=== PATIENT | male | born 1970 | race Caucasian/White ===

== ENCOUNTER 2019-04-16 14:44 | Observation (INO) | payer OTHER ==
[2019-04-16 16:39] LABS: ABS Basophils 0.1 10^3/ul (0-0.2); ABS Eosinophils 0.1 10^3/ul (0-0.6); ABS Lymphocytes 3.3 10^3/ul (1.0-4.8); ABS Monocytes 1.5 10^3/ul (0-0.8); ABS Neutrophils 8.6 10^3/ul (1.5-7.7); Hematocrit 42 % (42-52); Lymphocyte % 24.1 %; Mean Corpuscular HGB Conc 33 g/dL (31-36); Mean Corpuscular Hemoglobin 34 pg (27-31); Mean Corpuscular Volume 103 fL (80-94); Mean Platelet Volume 8.7 fL (7.4-10.4); Nucleated Red Blood Cells % 0.1; Platelet Count 150 10^3/uL (150-450); Red Blood Count 4.11 10^6 /uL (4.18-5.48); Red Cell Distribution Width 17 % (10-15); White Blood Count 13.6 10^3/uL (3.5-10.8)
[2019-04-16 16:59] LABS: ALT 19 U/L (7-52); AST 26 U/L (13-39); Albumin 3.7 g/dL (3.2-5.2); Albumin/Globulin Ratio 1.2 (1-3); Alkaline Phosphatase 113 U/L (34-104); Anion Gap 7 mmol/L (2-11); BUN/Creatinine Ratio 21.6 (8-20); Blood Urea Nitrogen 25 mg/dL (6-24); CO2 Carbon Dioxide 29 mmol/L (22-32); Calcium 9.5 mg/dL (8.6-10.3); Chloride 101 mmol/L (101-111); EGFR African American 81.3 (>60); EGFR Non-African American 67.2 (>60); Globulin 3.1 g/dL (2-4); Glucose 132 mg/dL (70-100); Potassium 3.8 mmol/L (3.5-5.0); Sodium 137 mmol/L (135-145); Total Protein 6.8 g/dL (6.4-8.9)
[2019-04-16 17:03] LABS: Troponin I 0.03 ng/mL (<0.03)
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
[2019-04-16] MEDS ORDERED: Furosemide IV* 10 MG/ML VIAL (40 MG) IV SLOW PU ONE (18:12)
[2019-04-16] MEDS ORDERED: Acetaminophen TAB* 325 MG PO PRN (19:59)
[2019-04-16] MEDS ORDERED: Albuterol 2.5 MG/3 ML NEB.SOL* (0.083%) INH PRN (19:59)
[2019-04-16] MEDS ORDERED: Ondansetron INJ* 2 MG/ML VIAL IV PRN (19:59)
[2019-04-16 20:17] LABS: Activated Partial Thrombo Time 40.3 seconds (26.0-38.0); INR 1.76 (0.82-1.09)
[2019-04-16] MEDS ORDERED: traZODone TAB* 100 MG PO SCH (21:00)
[2019-04-16 21:19] LABS: Troponin I 0.03 ng/mL (<0.03)
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
[2019-04-16] MEDS ORDERED: Heparin VIAL(*) 5000 UNITS/ML VIAL (FIVE THOUSAND) SUBCUT SCH (22:00)
[2019-04-16 22:45] LABS: Influenza A Molecular Negative (Negative); Influenza B Molecular Negative (Negative)
[2019-04-16 23:21] LABS: Urine Appearance Clear; Urine Bilirubin Negative (Negative); Urine Blood 1+ (Negative); Urine Color Straw; Urine Glucose Negative (Negative); Urine Ketones Negative (Negative); Urine Nitrite Negative (Negative); Urine Protein Negative (Negative); Urine Specific Gravity 1.005 (1.010-1.030); Urine Urobilinogen Negative (Negative)
[2019-04-16 23:42] LABS: Urine Bacteria Absent (Absent); Urine Red Blood Cell Trace(0-2/hpf) (Absent); Urine White Blood Cell Absent (Absent)
[2019-04-17 03:39] LABS: Hematocrit 40 % (42-52); Hemoglobin 13.3 g/dL (14.0-18.0); Mean Corpuscular HGB Conc 33 g/dL (31-36); Mean Corpuscular Hemoglobin 34 pg (27-31); Mean Corpuscular Volume 101 fL (80-94); Mean Platelet Volume 8.4 fL (7.4-10.4); Platelet Count 149 10^3/uL (150-450); Red Blood Count 3.95 10^6 /uL (4.18-5.48); Red Cell Distribution Width 17 % (10-15); White Blood Count 13.5 10^3/uL (3.5-10.8)
[2019-04-17 03:44] LABS: INR 2.02 (0.82-1.09)
[2019-04-17 04:08] LABS: Troponin I 0.04 ng/mL (<0.03)
[2019-04-17 04:33] LABS: Albumin 3.6 g/dL (3.2-5.2); Albumin/Globulin Ratio 1.3 (1-3); BUN/Creatinine Ratio 23.2 (8-20); Calcium 9.5 mg/dL (8.6-10.3); EGFR African American 84.7 (>60); Globulin 2.8 g/dL (2-4); HDL Cholesterol 21.8 mg/dL; Indirect Bilirubin 1.2 mg/dL (0.3-1.0); Potassium 4.5 mmol/L (3.5-5.0); Total Bilirubin 1.8 mg/dL (0.2-1.0); Total Protein 6.4 g/dL (6.4-8.9)
--- NOTE | 2019-04-17 04:40 | PN ---
Hospitalist Progress Note Date of Service: 04/17/19 Not IUNR 2.02 suepct elvated due to liver congestion from possible right sided CHF, will hold heparin sub-q scds ordered
[2019-04-17 04:53] LABS: ABS Basophils 0.2 10^3/ul (0-0.2); ABS Eosinophils 0.3 10^3/ul (0-0.6); ABS Lymphocytes 3.4 10^3/ul (1.0-4.8); ABS Monocytes 1.6 10^3/ul (0-0.8); Lymphocyte % 25.5 %; Nucleated Red Blood Cells % 0.2
[2019-04-17 06:24] LABS: Troponin I 0.04 ng/mL (<0.03)
[2019-04-17] MEDS ORDERED: Furosemide IV* 10 MG/ML VIAL (40 MG) IV SLOW PU SCH (08:00)
[2019-04-17] MEDS ORDERED: Aspirin EC TAB* 81 MG TAB.EC PO SCH (09:00)
[2019-04-17] MEDS ORDERED: Clopidogrel TAB* 75 MG PO SCH (09:00)
[2019-04-17] MEDS ORDERED: Lisinopril TAB* 10 MG PO SCH (09:00)
[2019-04-17] MEDS ORDERED: Pantoprazole TAB * 40 MG TAB PO SCH (09:00)
[2019-04-17] MEDS ORDERED: Bumetanide IV* 0.25 MG/ML 4 ML VIAL SLOW PUSH SCH ×3 (11:12→21:00)
[2019-04-17] MEDS ORDERED: Spironolactone TAB* 25 MG PO SCH (11:13)
[2019-04-17] MEDS ORDERED: Perflutren Lipid Microsphere* 3 ML VIAL ONE (11:27)
--- NOTE | 2019-04-17 12:51 | CONS ---
CONSULTATION REPORT: DATE OF CONSULT: 04/17/19 ATTENDING PHYSICIAN: Dr. Arvind Fonseca, Cardiology.* (DICTATED BY TOBY CHAMBERS NP) PRIMARY ABSTRACT CLERK: Historically, Dr. Carlo Noel. PRIMARY PHYSICIAN: Romie García, [facility] CHIEF COMPLAINT: Weight gain, shortness of breath, orthopnea, abdominal distention. HISTORY OF PRESENT ILLNESS: This is a 48-year-old male patient, historically followed by Dr. Carlo Noel due to a history of coronary artery disease with prior myocardial infarction in 2011 with recurrent DE in 2015, ischemic cardiomyopathy, obesity, hypertension, hyperlipidemia and ongoing tobacco abuse with medical followup noncompliance. The patient states he has not been followed by Cardiology since [address] citing [address] Noel and himself. He states he has been seeing Romie García periodically over the last 6 months due to complaints of increased lower extremity edema and weight gain. He states that Romie García has been temporarily placing him on p.o. Lasix and diuresing him as needed for hypervolemia; however, over the past 6 to 8 weeks while being off Lasix, he has developed a 35 pound weight gain with associated abdominal distention, orthopnea , shortness of breath and lower extremity edema with scrotal edema. He states that he opted for evaluation due to severity of symptoms. He denies chest pain. Denies anginal equivalent, which historically was diaphoresis and chest pressure. While being evaluated in the emergency department, the patient had minimal troponin elevation at 0.03, thus was admitted to [address] [place] [address]. BNP was elevated at 620. Liver function tests were suggestive of hepatic congestion. We have been asked to see the patient in consultation. ECG from 04/16/19 at 0453 was reviewed. The patient was in a junctional rhythm, rate 63. Chest x- ray 04/16/19 was suggestive of cardiomegaly with pulmonary vascular congestion. Upon entering room, he was anxious, stating he was going to leave against medical advice because he has not slept and was "sweaty." The family was at bedside. He denies dizziness, syncope, palpitations, sensation of heart racing or chest pain. Last echocardiogram according to our medical records was in November 2014. At that time per report, LVEF 20% to 25% with severe global hypokinesis. The basal anterior, basal anterolateral, basal inferolateral, basal inferior, mid anterior, mid anterolateral, mid inferolateral, mid inferior and apical lateral wall segments were hypokinetic. The basal anteroseptal, basal inferoseptal, mid anteroseptal, mid inferoseptal, and apical inferior wall segments were akinetic. Moderate left atrial dilatation. Mild right ventricular systolic dysfunction. Mild tricuspid insufficiency. Trace to mild mitral regurgitation. Last ischemic evaluation via left heart catheterization on 11/17/14; 1. Per report, left main patent. 2. LAD supplied a thin diffusely diseased small caliber first diagonal branch. Second diagonal branch was somewhat small caliber vessel. There was no significant disease. The LAD had a stent noted in the mid portion which had mild to moderate in-stent restenosis. The severity of narrowing was approximately 25% to 30%. The distal LAD tapered as it approached the apical region and on to the distal inferior wall. There was mild disease seen. 3. Left circumflex nondominant vessel supplying a moderate to large size trifurcation marginal branch. There was a 50% to 55% narrowing noted in the proximal portion of this artery. There was an ostial 30% to 35% narrowing seen. There is collateral blood flow seen subtly to the RCA through left coronary system most likely septal perforators in the LAD. 4. Right coronary artery totally occluded proximally. On reconstitution, there was diffuse disease seen within the proximal to mid portion of the vessel with a long segment at 75% to 80% stenosis with a dissected area in its mid portion prior to bifurcation into the large acute marginal branch which supplied the distal inferior wall and a continuation of the right coronary artery supplying the more proximal inferior wall to the PDA. At that time, the patient underwent successful reconstitution of totally occluded proximal RCA with PTCA 2.5 x 32 mm drug-eluting stent. PAST MEDICAL HISTORY: 1. Ischemic cardiomyopathy. 2. Systolic heart failure. 3. Ongoing tobacco abuse. 4. Hyperlipidemia. 5. Hypertension. 6. Prior DE in 2011 with subsequent DE in 2014. 7. Coronary artery disease. 8. Gastric reflux. PAST SURGICAL HISTORY: Includes: 1. Prior LAD stenting in 2011 with subsequent drug-eluting stent to right coronary artery in 2014. 2. Orthopedic surgery involving his right forearm, right hip and right femur. HOME MEDICATIONS: Listed includes: 1. Atorvastatin unknown dose. 2. Lisinopril unknown dose. 3. Clopidogrel 75 mg a day. 4. Omeprazole 40 mg a day. 5. Aspirin 81 mg a day. ALLERGIES: Listed includes BETA-BLOCKERS, which apparently caused a profound bradycardia per the patient's . FAMILY HISTORY: Noncontributory. SOCIAL HISTORY: The patient is disabled, , lives at home with his . Smokes half a pack per day for the last 35 years. Denies alcohol use. Reports former marijuana use, but states he has not used marijuana products in several years. 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 REVIEW OF SYSTEMS: All systems have been reviewed and otherwise negative except what was above mentioned in the HPI. PHYSICAL EXAM: The patient is sitting on edge of bed, anxious, aggravated upon entering room; however, he is alert and oriented and cooperative. Family is at bedside. HEENT: Head is atraumatic, normocephalic. Oral mucosa is moist. Tongue is midline. Neck: Supple. Trachea midline. Unable to assess JVD due to neck girth. Cardiac: Diminished S1, S2. Regular rate and rhythm. No overt murmur, rub, or gallop noted. Lungs: Auscultated posteriorly, diminished throughout. Respirations nonlabored. Abdomen is obese, nontender. Normoactive bowel sounds x4. Unable to palpate for hepatomegaly due to protuberant abdomen. Extremities: 1+ pitting bilateral pretibial edema noted. The patient reports scrotal edema. Skin: Intact. No evidence of jaundice, rashes, or ecchymosis appreciated. DIAGNOSTIC STUDIES/LAB DATA: Blood work obtained on 04/17/19 reviewed, sodium 135, potassium 4.5, chloride 100, carbon dioxide 26, BUN 26, creatinine 1.12. Total bilirubin 1.8, AST and ALT are normal, alk phos 110. Troponin #1 is 0.03. Troponin #2 is 0.04. Troponin #3 is 0.04. BNP is 620. LDL 40. Influenza rapid A and B are negative. INR is 2.02. White count 13.5, hemoglobin 13.3, hematocrit 40, platelets 149. ECG as mentioned above. ASSESSMENT AND PLAN: 1. Decompensated systolic dysfunction. LVEF historically 20% to 25% with a prior history of ischemic cardiomyopathy; NYHA functional class 3, stage C. The patient has been temporarily on p.o. Lasix intermittently for the past 6 months with reported 35 pound weight gain, positive orthopnea, shortness of breath, pretibial edema and scrotal edema. At this current time, would recommend discontinuing IV Lasix and transitioning to IV Bumex, which will likely be better absorbed. He has a history of reported profound bradycardia with beta-blockers, thus he is not on beta-paco therapy at this time. Resting heart rate is 60 to 70. I would recommend continuing lisinopril therapy. We will add Aldactone 12.5 mg a day, up titrate depending upon blood pressure and electrolyte response. Await echocardiogram in the past. According to the , the patient declined AICD implantation. The patient is adamant about leaving against medical advice today, stating he has not slept and wishes to sleep in his own home. I reviewed with the patient that his abnormal liver function test could be suggestive of hepatic congestion and/or liver disease. In addition, he is at risk for dying suddenly from sudden cardiac . The patient states that he is willing to wait to have echocardiogram completed; however, again he is adamant about leaving against medical advice. The patient states that he will follow up outpatient with Dr. Fonseca. Follow up appointment has been arranged. We will make further recommendations post echocardiogram and notify primary team of the patient's agitation and request to leave against medical advice. 2. Troponin elevation; the patient denies angina equivalent, which historically was diaphoresis and chest pain. The patient is noted to be in a junctional rhythm on ECG, this could be related to above #1; however, he does have known mild LAD in- stent restenosis based on 2015 left heart catheterization in addition to moderate left circumflex disease. We would recommend continuing aspirin, clopidogrel and statin therapy, not on beta blockade therapy due to reported sensitivity/reaction. We will await echocardiogram to rule out regional wall motion abnormality. 3. Abnormal liver function; the patient has INR of 2 with elevated alk phos and bilirubin, although this could be related to hepatic congestion, which suggest ruling out liver disease. Given morbid obesity, this could also be due to nonalcoholic steatohepatitis. 4. History of hyperlipidemia, on atorvastatin therapy. Goal LDL is less than 70. 5. Disposition. Pending course. We will await echocardiogram, transition IV Lasix to Bumex therapy and make recommendations following. We will update primary team about the patient's request to leave against medical advice. TOBY CHAMBERS, DANK [id number]/[facility] #: [id number] [facility], MANHATTANLive
[2019-04-17 13:03] VITALS: BP 136/72
--- NOTE | 2019-04-17 16:34 | ECHO ---
*[facility]* [place] [address] Fax #: [phone] Transthoracic Echocardiogram Patient: Kenney Estevez : 1970 Study Date: 04/17/2019 Age: 48 Gender: M HR: 68 bpm Height: 74 in /188 cm BSA: 2.75 m^2 Weight: 348.3 lb /158.3 kg BMI: 44.8 kg/m^2 *Slider Assembler: * Olena Bolden RDCS RN *Referring Physician: * Vernon Mcguire *Reading Physician: * Arvind Fonseca MD Indications: Congestive Heart Failure. History: Coronary artery disease. SD. PCI. Cardiomyopathy. Risk factors: Current tobacco use. Hypertension. Obese. Conclusions Summary: - Left ventricle: The cavity size is moderately dilated. Posterior wall thickness is mildly increased. Systolic function is severely reduced globally. The inferior wall appears to move best. The estimated ejection fraction is 15-20%. - Right ventricle: Systolic function is moderately reduced. - Left atrium: The atrium is moderately to severely dilated. - Mitral valve: There is trace regurgitation. - Aortic valve: There is no evidence of stenosis. - Tricuspid valve: There is mild-moderate regurgitation. - Pulmonary arteries: Systolic pressure is within the normal range, estimated to be 21 mm Hg. Pulmonary artery pressure may be underestimated - Compared to study of 11/17/14, the left ventricle and right ventricle functions are worse. Study data: Transthoracic echocardiogram. Procedure: Transthoracic echocardiography was performed. Image quality was suboptimal. The study was technically limited due to body habitus and smoking history. Intravenous Definity 4 ml was administered to enhance imaging. Complete 2D, spectral Doppler, and color flow Doppler. Location: Bedside. Patient status: Inpatient. Patient room number: 442-01. Rhythm: Normal sinus rhythm with PVCs. Findings Left ventricle: The cavity size is moderately dilated. Posterior wall thickness is mildly increased. Systolic function is severely reduced globally. The inferior wall appears to move best. The estimated ejection fraction is 15-20%. Doppler parameters are consistent with restrictive physiology, indicative of decreased left ventricular diastolic compliance and/or increased left atrial pressure. Right ventricle: The cavity size is moderately dilated. Systolic function is moderately reduced. Left atrium: The atrium is moderately to severely dilated. Right atrium: The atrium is moderately to severely dilated. Mitral valve: The leaflets are mildly thickened. There is no evidence of stenosis. There is trace regurgitation. Aortic valve: The valve is trileaflet. The leaflets are mildly thickened. There is no evidence of stenosis. There is no significant regurgitation. Tricuspid valve: Not well visualized. There is mild-moderate regurgitation. Pulmonic valve: The valve is structurally normal. There is no evidence of stenosis. There is mild regurgitation. Aorta: Aortic root: The aortic root is not dilated. Ascending aorta: The ascending aorta is not dilated. Aortic arch: The aortic arch is not visualized. Pericardium: There is no significant pericardial effusion. Pulmonary arteries: The main pulmonary artery is normal-sized. Systolic pressure is within the normal range, estimated to be 21 mm Hg. Pulmonary artery pressure may be underestimated Systemic veins: Inferior vena cava: Not well visualized. Measurements Left ventricle Value Ref Aortic valve Value Ref URBAN, LAX (H) 6.8 cm 4.2 - 5.8 Charito diam, ED 2.1 cm ---- ESD, LAX (H) 6.4 cm 2.5 - 4.0 Peak v, S 1.5 m/sec ---- FS, LAX (L) 6 % 25 - 43 VTI, S 25.1 cm ---- PW, ED (H) 1.1 cm 0.6 - 1.0 Mean grad, S 6.0 mm Hg ---- IVS/PW, ED 0.9 Peak grad, S 9.0 mm Hg ---- E', lat charito, TDI (L) 8.9 cm/sec >=10.0 LVOT/AV, VTI ratio 0.8 --- - E/e', lat charito, 10 TDI Mitral valve Value Ref E', med charito, TDI (L) 5.5 cm/sec >=7.0 Peak E 0.92 m/sec --- - E/e', med charito, 17 Peak A 0.33 m/sec ---- TDI Decel time 130 ms ---- E', avg, TDI 7.2 cm/sec Peak grad, D 3.4 mm Hg ---- E/e', avg, TDI 13 <=14 Peak E/A ratio 2.7 --- - LVOT Value Ref Pulmonic valve Value Ref Peak viji, S 1.22 m/sec Peak v, S 1.01 m/sec ---- VTI, S 20.1 cm Peak grad, S 4.0 mm Hg ---- Peak grad, S 6 mm Hg Mean grad, S 3 mm Hg Tricuspid valve Value Ref Peak RV-RA grad, S 13 mm Hg ---- Ventricular septum Value Ref Max TR viji 1.8 m/sec ---- IVS, ED 1.0 cm 0.6 - 1.0 Aortic root Value Ref Right ventricle Value Ref Root diam 3.5 cm <4.7 URBAN, LAX 4.8 cm URBAN minor ax, (H) 4.8 cm 1.9 - 3.5 Ascending aorta Value Ref A4C mid AAo AP diam, S 3.1 cm ---- Left atrium Value Ref Aortic arch Value Ref AP dim, ES (H) 5.00 cm 3.00 - Arch diam 3.1 cm ---- 4.00 ML dim, A4C 6.1 cm SI dim, A4C 7.4 cm Vol/bsa, ES, 1-p (H) 59 ml/m^2 12 - 37 A4C Vol/bsa, ES, A/L (H) 48 ml/m^2 16 - 34 Right atrium Value Ref ML dim, ES, A4C (H) 5.2 cm 2.6 - 4.4 SI dim, ES, A4C (H) 7.0 cm 3.4 - 5.3 Legend: (L) and (H) yovanny values outside specified reference range. Prepared and electronically signed by Arvind Fonseca MD 04/17/2019 16:34
[2019-04-17] MEDS ORDERED: Atorvastatin* 80 MG TAB PO SCH (18:00)
[2019-04-18] MEDS ORDERED: Spironolactone TAB* 25 MG PO SCH (09:00)
== END 2019-04-17 15:00 | disposition home or self-care (01) ==
LOC: ED 14:44 → INTOOBSV 19:52 → MEDTELE 19:52
PROVIDERS: ADMIT Nurse Practitioner Family; ATTEND Nurse Practitioner Family
DX: R19.00 Intra-abdominal and pelvic swelling, mass and lump, unspecified site (principal); R60.9 Edema, unspecified; R06.01 Orthopnea; R63.5 Abnormal weight gain; I11.0 Hypertensive heart disease with heart failure; I50.9 Heart failure, unspecified; K21.9 Gastro-esophageal reflux disease without esophagitis; I25.10 Atherosclerotic heart disease of native coronary artery without angina pectoris; I25.2 Old myocardial infarction; I25.5 Ischemic cardiomyopathy; Z95.5 Presence of coronary angioplasty implant and graft; R06.02 Shortness of breath; E11.9 Type 2 diabetes mellitus without complications; R06.00 Dyspnea, unspecified; R94.31 Abnormal electrocardiogram [ECG] [EKG]; F17.210 Nicotine dependence, cigarettes, uncomplicated; E78.5 Hyperlipidemia, unspecified; J44.9 Chronic obstructive pulmonary disease, unspecified; Z79.82 Long term (current) use of aspirin; Z79.811 Long term (current) use of aromatase inhibitors; Z79.01 Long term (current) use of anticoagulants; Z88.8 Allergy status to other drugs, medicaments and biological substances
CPT/HCPCS: 36415; 71045; 80048; 80053; 80061; 80076; 81003; 81015; 83036; 83605; 83880; 84484; 85025; 85610; 85730; 87040; 93005; 93306; 96372; 96374; 96376; 99285; A9270-GY; C8929; G0378; J1644; J1940

== ENCOUNTER 2019-11-14 15:00 | Inpatient (IN) ==
[2019-11-14] MEDS ORDERED: Magnesium Sulfate 2 gm BAG 2 GM/50 ML BAG IVPB ONE (15:03)
[2019-11-14] MEDS ORDERED: Amiodarone 150 mg IVPREMIX 150 MG/100 ML BAG IV ONE (15:05)
[2019-11-14] MEDS ORDERED: fentaNYL 100 mcg/2 ml 50 MCG/ML VIAL IV SLOW PU ONE (15:21)
[2019-11-14 15:23] LABS: ABS Basophils 0.1 10^3/ul (0-0.2); ABS Eosinophils 0.1 10^3/ul (0-0.6); ABS Lymphocytes 2.1 10^3/ul (1.0-4.8); ABS Monocytes 1.1 10^3/ul (0-0.8); Eosinophil % 1.4 %; Hematocrit 46 % (42-52); Hemoglobin 15.8 g/dL (14.0-18.0); Mean Corpuscular HGB Conc 35 g/dL (31-36); Mean Corpuscular Hemoglobin 35 pg (27-31); Mean Corpuscular Volume 103 fL (80-94); Mean Platelet Volume 8.2 fL (7.4-10.4); Nucleated Red Blood Cells % 0.2; Platelet Count 145 10^3/uL (150-450); Red Blood Count 4.48 10^6 /uL (4.18-5.48); Red Cell Distribution Width 18 % (10-15); White Blood Count 8.4 10^3/uL (3.5-10.8)
[2019-11-14] MEDS ORDERED: fentaNYL 100 mcg/2 ml 50 MCG/ML VIAL ONE (15:23)
[2019-11-14] MEDS ORDERED: Midazolam 2 mg/2 ml VIAL 1 mg/ml 2 ml VIAL (2 mg) IV SLOW PU ONE (15:25)
[2019-11-14] MEDS ORDERED: Midazolam 5 mg/ml concentrated 5 mg/ml 1 ml VIAL ONE (15:26)
[2019-11-14] MEDS ORDERED: Amiodarone 360 MG IVPREMIX 360 MG/200 ML BAG IV ONE (15:33)
[2019-11-14 15:46] LABS: Albumin 4.2 g/dL (3.2-5.2); Albumin/Globulin Ratio 1.2 (1-3); BUN/Creatinine Ratio 18.3 (8-20); Calcium 9.8 mg/dL (8.6-10.3); EGFR African American 104.5 (>60); EGFR Non-African American 86.4 (>60); Globulin 3.6 g/dL (2-4); Potassium 4.1 mmol/L (3.5-5.0); Total Bilirubin 1.6 mg/dL (0.2-1.0); Total Protein 7.8 g/dL (6.4-8.9)
[2019-11-14 15:48] LABS: Troponin I 0.01 ng/mL (<0.03)
[2019-11-14] MEDS ORDERED: Amiodarone 400 mg TAB PO ONE (15:49)
[2019-11-14 19:51] LABS: Magnesium 1.8 mg/dL (1.9-2.7)
[2019-11-14] MEDS: Mometasone/Formoter 200/5 MDI INH SCH (20:31)
[2019-11-14 21:42] LABS: Anion Gap 8 mmol/L (2-11); BUN/Creatinine Ratio 19.6 (8-20); Blood Urea Nitrogen 18 mg/dL (6-24); CO2 Carbon Dioxide 21 mmol/L (22-32); Calcium 9.7 mg/dL (8.6-10.3); Chloride 104 mmol/L (101-111); EGFR African American 105.8 (>60); EGFR Non-African American 87.4 (>60); Glucose 109 mg/dL (70-100); Magnesium 2.1 mg/dL (1.9-2.7); Potassium 4.5 mmol/L (3.5-5.0); Sodium 133 mmol/L (135-145)
[2019-11-15 01:32] LABS: Troponin I 11.13 ng/mL (<0.03)
[2019-11-15 05:42] LABS: Hematocrit 44 % (42-52); Hemoglobin 15.3 g/dL (14.0-18.0); Mean Corpuscular HGB Conc 35 g/dL (31-36); Mean Corpuscular Hemoglobin 36 pg (27-31); Mean Corpuscular Volume 103 fL (80-94); Mean Platelet Volume 8.6 fL (7.4-10.4); Platelet Count 127 10^3/uL (150-450); Red Blood Count 4.29 10^6 /uL (4.18-5.48); Red Cell Distribution Width 18 % (10-15); White Blood Count 10.7 10^3/uL (3.5-10.8)
[2019-11-15] MEDS ORDERED: NS 0.9% 1000 ml BAG 1,000 ML IV SCH ×2 (06:00→10:30)
[2019-11-15 06:04] LABS: Anion Gap 9 mmol/L (2-11); BUN/Creatinine Ratio 18.9 (8-20); Blood Urea Nitrogen 18 mg/dL (6-24); CO2 Carbon Dioxide 21 mmol/L (22-32); Calcium 9.6 mg/dL (8.6-10.3); Chloride 103 mmol/L (101-111); EGFR Non-African American 84.3 (>60); Glucose 104 mg/dL (70-100); Magnesium 1.9 mg/dL (1.9-2.7); Potassium 4.6 mmol/L (3.5-5.0); Sodium 133 mmol/L (135-145)
[2019-11-15] MEDS ORDERED: Magnesium Sulfate IV 1GM/100ML 1 GM/100 ML BAG IV ONE (06:09)
[2019-11-15 06:12] LABS: Troponin I 9.82 ng/mL (<0.03)
[2019-11-15] MEDS ORDERED: diPHENhydraMINE IV 50 MG/ML 1 ml VIAL (BENADRYL) ONE (08:14)
[2019-11-15] MEDS ORDERED: VERAPAMIL 2.5 MG/ML 2 ML VIAL ** 5 mg/2 ml ONE ×2 (08:14→09:15)
[2019-11-15] MEDS ORDERED: Midazolam 5 mg/5 ml VIAL 1 mg/ml 5 ml VIAL (5 mg) ONE (08:14)
[2019-11-15] MEDS ORDERED: HYDROmorphone 1 MG/1 ML SYRINGE ONE (08:14)
[2019-11-15] MEDS ORDERED: Heparin 1,000 UNIT/ML 10 ml (10,000 UNITS) CATHLAB/DIALYSIS ONE ×2 (08:14→09:17)
[2019-11-15] MEDS ORDERED: nitroGLYCERIN DRIP 0 MCG/0 ML BTL ONE (08:15)
[2019-11-15] MEDS ORDERED: Lidocaine 1% VIAL 10 MG/ML VIAL ONE (08:15)
[2019-11-15] MEDS ORDERED: Heparin 2 UNITS/ML 1000 mls 2,000 ML IV ONE (08:15)
[2019-11-15] MEDS ORDERED: Iohexol 350 (CONTRAST) 200 ML MDV IV ONE ×2 (08:15→09:04)
[2019-11-15] MEDS ORDERED: Amiodarone 360 MG IVPREMIX 0 MG/0 ML BAG IV ONE (08:54)
[2019-11-15] MEDS ORDERED: Amiodarone IV 150 mg/3 ml VIAL ONE (08:54)
[2019-11-15] MEDS ORDERED: Magnesium Sulfate IV 0.5 GM/ML 2 ml VIAL (1 gm) ONE (08:55)
[2019-11-15] MEDS ORDERED: CMCS:Epleronone 25 mg TAB (NF) PO SCH (09:00)
[2019-11-15] MEDS ORDERED: Aspirin EC 81 mg TAB.EC (enteric coated) PO SCH (09:00)
[2019-11-15] MEDS ORDERED: Amiodarone 400 mg TAB PO SCH (09:00)
[2019-11-15 09:31] LABS: ABS Basophils 0.1 10^3/ul (0-0.2); ABS Lymphocytes 1.7 10^3/ul (1.0-4.8); ABS Monocytes 1.2 10^3/ul (0-0.8); ABS Neutrophils 7.7 10^3/ul (1.5-7.7); Eosinophil % 0.4 %; Lymphocyte % 16.2 %
[2019-11-15] MEDS: Mometasone/Formoter 200/5 MDI INH SCH (11:00)
[2019-11-15 12:12] VITALS: BP 107/75
== END 2019-11-15 13:00 | disposition short-term general hospital (02) | DRG 192 ==
LOC: ED 15:00 → ICU 17:13
PROVIDERS: ADMIT Internal Medicine; ATTEND Internal Medicine

== ENCOUNTER 2019-12-18 23:37 | Observation (INO) ==
[2019-12-19 00:51] LABS: Hematocrit 41 % (42-52); Hemoglobin 13.8 g/dL (14.0-18.0); Mean Corpuscular HGB Conc 34 g/dL (31-36); Mean Corpuscular Hemoglobin 35 pg (27-31); Mean Corpuscular Volume 103 fL (80-94); Mean Platelet Volume 7.9 fL (7.4-10.4); Platelet Count 157 10^3/uL (150-450); Red Cell Distribution Width 19 % (10-15); White Blood Count 9.1 10^3/uL (3.5-10.8)
[2019-12-19 01:05] LABS: ABS Eosinophils 0.1 10^3/ul (0-0.6); ABS Lymphocytes 1.9 10^3/ul (1.0-4.8); ABS Monocytes 1.7 10^3/ul (0-0.8); ABS Neutrophils 5.4 10^3/ul (1.5-7.7); Eosinophil % 1.2 %; Lymphocyte % 21.3 %
[2019-12-19 01:09] LABS: ALT 24 U/L (7-52); AST 25 U/L (13-39); Albumin 3.7 g/dL (3.2-5.2); Albumin/Globulin Ratio 1.2 (1-3); Alkaline Phosphatase 135 U/L (34-104); Anion Gap 9 mmol/L (2-11); Blood Urea Nitrogen 25 mg/dL (6-24); C Reactive Protein 3.01 mg/L (<8.01); CO2 Carbon Dioxide 27 mmol/L (22-32); Chloride 101 mmol/L (101-111); EGFR African American 91.8 (>60); EGFR Non-African American 75.9 (>60); Globulin 3.1 g/dL (2-4); Glucose 103 mg/dL (70-100); INR 2.05 (0.82-1.09); Potassium 3.7 mmol/L (3.5-5.0); Sodium 137 mmol/L (135-145); Total Protein 6.8 g/dL (6.4-8.9)
[2019-12-19 01:17] LABS: Troponin I 0.04 ng/mL (<0.03)
[2019-12-19] MEDS ORDERED: Furosemide 20 mg/2 ml IV VIAL IV ONE (01:25)
[2019-12-19 07:29] LABS: ABS Basophils 0.1 10^3/ul (0-0.2); ABS Eosinophils 0.1 10^3/ul (0-0.6); ABS Lymphocytes 1.7 10^3/ul (1.0-4.8); ABS Monocytes 1.4 10^3/ul (0-0.8); ABS Neutrophils 5.2 10^3/ul (1.5-7.7); Hematocrit 40 % (42-52); Hemoglobin 13.8 g/dL (14.0-18.0); Mean Corpuscular HGB Conc 34 g/dL (31-36); Mean Corpuscular Hemoglobin 35 pg (27-31); Mean Corpuscular Volume 103 fL (80-94); Platelet Count 148 10^3/uL (150-450); Red Blood Count 3.91 10^6 /uL (4.18-5.48); Red Cell Distribution Width 18 % (10-15); White Blood Count 8.4 10^3/uL (3.5-10.8)
[2019-12-19 07:55] LABS: Anion Gap 9 mmol/L (2-11); BUN/Creatinine Ratio 23.8 (8-20); Blood Urea Nitrogen 24 mg/dL (6-24); CO2 Carbon Dioxide 27 mmol/L (22-32); Calcium 9.1 mg/dL (8.6-10.3); Chloride 101 mmol/L (101-111); EGFR Non-African American 78.5 (>60); Glucose 122 mg/dL (70-100); Potassium 3.6 mmol/L (3.5-5.0); Sodium 137 mmol/L (135-145)
[2019-12-19 08:00] LABS: Troponin I 0.03 ng/mL (<0.03)
[2019-12-19] MEDS ORDERED: Furosemide 40 mg/4 ml IV VIAL IV SCH ×3 (08:00→09:00)
[2019-12-19] MEDS: Furosemide 40 mg/4 ml IV VIAL IV SCH ×2 (08:22→13:57)
[2019-12-19] MEDS ORDERED: CMCS:Epleronone 25 mg TAB (NF) PO SCH (09:00)
[2019-12-19 10:11] LABS: Indirect Bilirubin 1.2 mg/dL (0.3-1.0)
[2019-12-19 11:02] LABS: GGTP 56 U/L (9-64.0)
[2019-12-19] MEDS ORDERED: Perflutren Lipid Microsphere 3 ML VIAL ONE (15:37)
[2019-12-19 22:30] VITALS: BP 113/64
== END 2019-12-19 21:20 | disposition left against medical advice (07) ==
LOC: ED 23:37 → MEDTELE 23:37
PROVIDERS: ADMIT Hospitalist; ATTEND Hospitalist

== ENCOUNTER 2023-10-04 20:00 | Inpatient (IN) ==
[2023-10-04] MEDS: Lactated Ringers 1000 ml BAG 1,000 ML IV ONE (21:09)
[2023-10-04 21:26] LABS: Activated Partial Thrombo Time 47.5 seconds (26.0-38.0); INR 3.97 (0.83-1.13)
[2023-10-04 21:27] LABS: Hematocrit 39.8 % (38-53); Hemoglobin 13.4 g/dL (13.2-16.3); Mean Corpuscular Hemoglobin 36.9 pg (27-33); Mean Corpuscular Hgb Conc 33.8 g/dL (31-36); Mean Corpuscular Volume 109.2 fL (80-97); Red Blood Count 3.64 10^6/uL (4.06-5.63); Red Cell Distribution Width 21.8 % (12-17); White Blood Count 9.8 10^3/uL (3.6-10.2)
[2023-10-04 21:50] LABS: ABS Lymphocytes 0.4 10^3/uL (1.0-4.8); ABS Monocytes 0.5 10^3/uL (0.0-1.1); ABS Neutrophils 8.9 10^3/uL (1.5-7.6); ABS Nucleated RBC 0.01 10^3/ul; Lymphocyte % 3.7 %; Mean Platelet Volume 9.5 fL (7.5-11.2); Nucleated Red Blood Cells % 0.1 %/100WBC (0.0-0.8); Platelet Count 86 10^3/uL (150-450)
[2023-10-04 21:54] LABS: Albumin 3.4 g/dL (3.2-5.2); Albumin/Globulin Ratio 1.1 (1-3); C Reactive Protein 71.09 mg/L (<8.01); Calcium 8.5 mg/dL (8.6-10.3); Creatinine, Serum 4.48 mg/dL (0.67-1.17); Magnesium 1.8 mg/dL (1.9-2.7); Potassium 3.6 mmol/L (3.5-5.0); Total Bilirubin 3.4 mg/dL (0.2-1.0); Total Protein 6.4 g/dL (6.4-8.9); eGFR CKD-EPI 14.9 (>60)
[2023-10-04] MEDS: Calcium Gluconate 1 GM/10 ML VIAL (in Pyxis) IV PUSH ONE (22:02)
[2023-10-04] MEDS: Lactulose 30 ml UDC PO ONE (22:03)
[2023-10-04] MEDS: cefTRIAXone 1 gm/50 mL D5W 1 GM/50 ML BAG IV ONE (23:00)
[2023-10-04 23:55] LABS: High Sensitivity Troponin 1 Hr 71 pg/mL (<20)
[2023-10-05 04:33] LABS: TSH Ultra Thyroid Stim Horm 3.13 mcIU/mL (0.34-5.60)
[2023-10-05] MEDS: Albumin Human 5% 12.5 GM/250 ML BTL IV SCH (05:24)
[2023-10-05] MEDS ORDERED: Vancomycin per Pharmacy 1 EA NOTE FOLLOW UP PRN (05:31)
[2023-10-05] MEDS ORDERED: Norepinephrine 4 MG/250mL D5W 4,000 MCG/250 ML BAG IV ONE (05:35)
[2023-10-05] MEDS: Lactulose 30 ml UDC PO SCH (05:43)
[2023-10-05] MEDS: Norepinephrine 4 MG/250mL D5W 4,000 MCG/250 ML BAG IV SCH (05:44)
[2023-10-05] MEDS: Magnesium Sulfate 2 gm BAG 2 GM/50 ML BAG IVPB ONE (05:51)
[2023-10-05] MEDS ORDERED: Vancomycin 1,000 MG in NS 0.9% 250 ml 250 ML IVPB SCH (06:00)
[2023-10-05] MEDS: Albumin Human 5% 25 GM/500 ML BTL IV ONE (06:03)
[2023-10-05] MEDS: Vancomycin 2,000 MG in NS 0.9% 500 ml BAG 500 ML IVPB ONE (06:03)
[2023-10-05] MEDS ORDERED: NS 0.9% 1000 ml BAG 100 ML IV PRN (07:47)
[2023-10-05] MEDS ORDERED: NS 0.9% 1000 ml BAG 200 ML IV PRN (07:47)
[2023-10-05 07:52] LABS: ABS Basophils 0.1 10^3/uL (0.0-0.1); ABS Lymphocytes 0.7 10^3/uL (1.0-4.8); ABS Monocytes 0.6 10^3/uL (0.0-1.1); ABS Nucleated RBC 0.02 10^3/ul; Hematocrit 39.5 % (38-53); Hemoglobin 13.2 g/dL (13.2-16.3); Lymphocyte % 5.4 %; Mean Corpuscular Hemoglobin 36.6 pg (27-33); Mean Corpuscular Hgb Conc 33.4 g/dL (31-36); Mean Corpuscular Volume 109.6 fL (80-97); Mean Platelet Volume 9.2 fL (7.5-11.2); Nucleated Red Blood Cells % 0.2 %/100WBC (0.0-0.8); Platelet Count 75 10^3/uL (150-450); Red Cell Distribution Width 21.2 % (12-17); White Blood Count 13.4 10^3/uL (3.6-10.2)
[2023-10-05 08:30] LABS: Albumin 3.3 g/dL (3.2-5.2); Albumin/Globulin Ratio 1.1 (1-3); Calcium 8.7 mg/dL (8.6-10.3); Creatinine, Serum 5.36 mg/dL (0.67-1.17); Potassium 3.7 mmol/L (3.5-5.0); Total Bilirubin 3.6 mg/dL (0.2-1.0); Total Protein 6.3 g/dL (6.4-8.9)
[2023-10-05] MEDS: Cholecalciferol (VIT D3) 1,000 unit TAB PO SCH (08:47)
[2023-10-05] MEDS: Sulfur Hexaflouride MICROSPHR 25 MG VIAL IV ONE (10:20)
[2023-10-05] MEDS: Heparin DRIP 25,000 UNITS BAG 25,000 UNITS/250 ML BAG IV SCH (10:21)
[2023-10-05] MEDS: Heparin 5000 UNITS/ML 1 mL VIAL IV SCH (10:26)
[2023-10-05 10:39] LABS: Hematocrit 39.3 % (38-53); Mean Corpuscular Hemoglobin 36.1 pg (27-33); Mean Corpuscular Volume 109.4 fL (80-97); Mean Platelet Volume 9.2 fL (7.5-11.2); Platelet Count 74 10^3/uL (150-450); Red Blood Count 3.59 10^6/uL (4.06-5.63); Red Cell Distribution Width 21.4 % (12-17); White Blood Count 13.4 10^3/uL (3.6-10.2)
[2023-10-05 11:15] LABS: Creatinine, Serum 5.44 mg/dL (0.67-1.17); eGFR CKD-EPI 11.8 (>60)
[2023-10-05 11:45] LABS: ABS Lymphocytes 0.9 10^3/uL (1.0-4.8); ABS Monocytes 0.6 10^3/uL (0.0-1.1); ABS Neutrophils 11.9 10^3/uL (1.5-7.6); ABS Nucleated RBC 0.01 10^3/ul; Lymphocyte % 6.4 %; Nucleated Red Blood Cells % 0.1 %/100WBC (0.0-0.8)
[2023-10-05] MEDS: Lidocaine 1% VIAL 10 MG/ML 30 ML VIAL INJ ONE (12:30)
[2023-10-05 12:40] LABS: Hepatitis B Surface Antigen Nonreactive (Nonreactive)
[2023-10-05 12:57] LABS: Hepatitis B Surface Ab Not Immune (Immune)
[2023-10-05] MEDS ORDERED: Vancomycin Random Level NOTE FOLLOW UP ONE (13:00)
[2023-10-05] MEDS: Lidocaine 1% VIAL 10 MG/ML 30 ML VIAL ONE (13:42)
[2023-10-05] MEDS: Vancomycin Random Level NOTE FOLLOW UP ONE (15:46)
[2023-10-05] MEDS: Albumin Human 25% 25 GM/100 ML BTL IV PRN (15:52)
[2023-10-05] MEDS ORDERED: Acetaminophen IV 1 GM/100ML 1,000 MG/100 ML BAG IV PRN (17:48)
[2023-10-05] MEDS: Heparin 1,000 UNIT/ML 10 ml (10,000 UNITS) CATHLAB/DIALYSIS DIALYSIS PRN (18:45)
[2023-10-05] MEDS: Vancomycin 1000 MG in NS 0.9% 250 ML IVPB ONE (19:31)
[2023-10-05] MEDS: Norepinephrine 16 MG/250mL NS 16,000 MCG/250 ML BAG IV SCH (20:51)
[2023-10-06] MEDS: Lactated Ringers 1000 ml BAG 250 ML IV ONE (05:09)
[2023-10-06] MEDS: Albumin Human 5% 12.5 GM/250 ML BTL IV SCH (05:17)
[2023-10-06] MEDS: VASOPRESSIN IVPREMIX BTL 40 UNIT/100 ML BTL IV ONE (05:20)
[2023-10-06 05:41] LABS: PCO2 Arterial <20 mmHg (35-45); PO2 Arterial 38 mmHg (80-100)
[2023-10-06 06:12] LABS: INR 3.13 (0.83-1.13)
[2023-10-06 06:24] LABS: ABS Basophils 0.1 10^3/uL (0.0-0.1); ABS Eosinophils 0.1 10^3/uL (0.0-0.5); ABS Lymphocytes 0.6 10^3/uL (1.0-4.8); ABS Monocytes 0.4 10^3/uL (0.0-1.1); ABS Neutrophils 6.4 10^3/uL (1.5-7.6); ABS Nucleated RBC 0.02 10^3/ul; Eosinophil % 1.4 %; Hematocrit 39.8 % (38-53); Hemoglobin 12.8 g/dL (13.2-16.3); Lymphocyte % 7.7 %; Mean Corpuscular Hemoglobin 36.5 pg (27-33); Mean Corpuscular Hgb Conc 32.3 g/dL (31-36); Mean Corpuscular Volume 113.3 fL (80-97); Mean Platelet Volume 10.2 fL (7.5-11.2); Nucleated Red Blood Cells % 0.2 %/100WBC (0.0-0.8); Platelet Count 85 10^3/uL (150-450); Red Blood Count 3.51 10^6/uL (4.06-5.63); Red Cell Distribution Width 22.4 % (12-17); White Blood Count 7.6 10^3/uL (3.6-10.2)
[2023-10-06] MEDS: Vancomycin Random Level NOTE FOLLOW UP ONE (06:29)
[2023-10-06] MEDS: DOBUTamine 2000 MCG/ML IVPREMX 500 MG/250 ML BAG IV SCH (06:40)
[2023-10-06] MEDS ORDERED: Norepinephrine 16 MG/250mL NS 16,000 MCG/250 ML BAG IV SCH (07:00)
[2023-10-06 07:03] LABS: Albumin 3.9 g/dL (3.2-5.2); Albumin/Globulin Ratio 1.3 (1-3); Calcium 9.1 mg/dL (8.6-10.3); Creatinine, Serum 4.68 mg/dL (0.67-1.17); Globulin 2.9 g/dL (2-4); Magnesium 2.2 mg/dL (1.9-2.7); Potassium 4.2 mmol/L (3.5-5.0); Total Bilirubin 4.3 mg/dL (0.2-1.0); Total Protein 6.8 g/dL (6.4-8.9); Vancomycin Random 24.9 mcg/mL; eGFR CKD-EPI 14.1 (>60)
[2023-10-06] MEDS: DOBUTamine 2000 MCG/ML IVPREMX 500 MG/250 ML BAG IV ONE (07:03)
[2023-10-06 07:24] LABS: PCO2 Arterial 20 mmHg (35-45); PO2 Arterial 285 mmHg (80-100)
[2023-10-06] MEDS ORDERED: Lorazepam PYXIS KEY PRN (08:58)
[2023-10-06] MEDS: LORazepam 2 mg VIAL 1 ml IV PUSH PRN (09:38)
[2023-10-06] MEDS: Morphine ORAL CONCENTRATE 5 MG/0.25 ML ORAL.SYRIN SL PRN (09:38)
[2023-10-06 10:46] VITALS: BP 100/46
== END 2023-10-06 11:45 | disposition expired | DRG 720 ==
LOC: EDHOLD 20:00 → ED 20:00 → ICU 10-05 07:36 → SUATTDRO 10-05 13:15
PROVIDERS: ADMIT Internal Medicine; ATTEND Student in an Organized Health Care Education/Training Program